=== PATIENT | male | born 1985 | race Hispanic/Latino ===

== ENCOUNTER → 2018-04-05 | Outpatient (CLI) | payer MEDICAID | LOC: M OUTALCOH 09:27 | DX: Z13.9 Encounter for screening, unspecified (principal); F14.20 Cocaine dependence, uncomplicated ==

== ENCOUNTER 2018-04-14 15:47 | Outpatient (RCR) | payer MEDICAID | END 2018-04-24 | LOC: M OUTALCOH 15:47 | DX: F14.20 Cocaine dependence, uncomplicated (principal); F12.20 Cannabis dependence, uncomplicated ==

== ENCOUNTER 2018-04-29 15:31 | Outpatient (RCR) | payer MEDICAID | END 2018-05-25 | LOC: M OUTALCOH 15:31 | DX: F14.20 Cocaine dependence, uncomplicated (principal); F12.20 Cannabis dependence, uncomplicated ==

== ENCOUNTER 2018-05-27 23:13 | Emergency (ER) | payer OTHER, MEDICAID | END 2018-05-28 01:35 | disposition home or self-care (01) | LOC: M ED 23:13 | DX: R20.9 Unspecified disturbances of skin sensation (principal); W22.09XA Striking against other stationary object, initial encounter; Y92.89 Other specified places as the place of occurrence of the external cause; F17.210 Nicotine dependence, cigarettes, uncomplicated | CPT/HCPCS: 73590 ==

== ENCOUNTER → 2020-11-13 | Outpatient (CLI) | payer OTHER ==
[2020-11-13 13:52] LABS: BASO # 0.1 10^3/uL (0.0-0.2); BASO % 0.6 % (0.0-1.0); EOS # 0.3 10^3/uL (0.0-0.5); HEMATOCRIT 41.8 % (42.0-52.0); HEMOGLOBIN 14.2 g/dl (13.5-17.5); LYMPH # 2.2 10^3/uL (1.5-5.0); LYMPH % 27.7 % (24.0-44.0); MEAN CORPUSCULAR VOLUME 94.1 fl (80.0-96.0); MONO # 0.6 10^3/uL (0.0-0.8); MONO % 7.3 % (0.0-5.0); NEUTROPHILS # 4.8 10^3/uL (1.5-8.5); PLATELET COUNT, AUTOMATED 233 10^3/uL (150-450); RED BLOOD COUNT 4.44 10^6/uL (4.30-6.10)
[2020-11-13 15:21] LABS: ERYTHROCYTE SEDIMENTATION RATE 2 mm/hr (0-15)
== END ==
LOC: M LAB 13:18
PROVIDERS: ATTEND Family Medicine
DX: D72.829 Elevated white blood cell count, unspecified (principal); R70.0 Elevated erythrocyte sedimentation rate

== ENCOUNTER → 2021-02-14 | Outpatient (CLI) | payer OTHER | LOC: M LABSMTC 11:07 | PROVIDERS: ATTEND Anesthesiology | DX: Z01.812 Encounter for preprocedural laboratory examination (principal); Z20.822 Contact with and (suspected) exposure to COVID-19 ==

== ENCOUNTER → 2021-02-19 | Outpatient (CLI) | payer OTHER | LOC: M OUTALCOH 13:15 | PROVIDERS: ATTEND Psychiatry & Neurology Psychiatry | DX: Z03.89 Encounter for observation for other suspected diseases and conditions ruled out (principal) ==

== ENCOUNTER 2021-02-27 13:21 | Outpatient (RCR) | payer OTHER | END 2021-03-25 | LOC: M OUTALCOH 13:21 | PROVIDERS: ATTEND Psychiatry & Neurology Psychiatry | DX: Z03.89 Encounter for observation for other suspected diseases and conditions ruled out (principal); F17.200 Nicotine dependence, unspecified, uncomplicated ==

== ENCOUNTER → 2021-03-12 | Outpatient (CLI) | payer OTHER | LOC: M LABSMTC 12:58 | PROVIDERS: ATTEND Anesthesiology | DX: Z01.812 Encounter for preprocedural laboratory examination (principal); Z20.822 Contact with and (suspected) exposure to COVID-19 ==